=== PATIENT | male | born 1985 | race Two or more races ===

== ENCOUNTER 2019-05-22 20:45 | Emergency (ER) | payer OTHER, MEDICAID ==
[~2019-05-22] VITALS: Ht 177.8 cm; Wt 86.2 kg
--- NOTE | 2019-05-22 21:07 | NUR ---
PT AAOX4. AMBULATORY. C/O BILATERAL HAND NUMBNESS X2 DAYS -TRAUMA. PT STATED HE WOKE UP IN THE MORNING AND HIS WRISTS WERE HURTING AND HANDS HAVE BEEN COLD. NO ACUTE DISTRESS NOTED. CR <3 SECS. PER PATIENT "I PLAYED A SHIT LOAD OF VIDEO GAMES." AWAITING MD FOR EVAL.
--- NOTE | 2019-05-22 22:14 | NUR ---
Patient discharged to home in stable condition. Written and verbal after care instructions given. Patient verbalizes understanding of instruction and RX. PT ambulatory with a steady gait.
[2019-05-22 22:15] VITALS: BP 132/78
== END 2019-05-22 22:15 | disposition home or self-care (01) ==
LOC: ER 20:50
DX: G56.03 Carpal tunnel syndrome, bilateral upper limbs (principal); Z98.890 Other specified postprocedural states